=== PATIENT | female | born 1965 | race Caucasian/White ===

== ENCOUNTER 2020-08-08 16:47 | Emergency (ER) | payer BC ==
--- NOTE | 2020-08-08 17:57 | EDM.PDOC ---
ED HPI GENERAL MEDICAL PROBLEM - General Chief Complaint: ENT Problem Stated Complaint: EAR PAIN Time Seen by Provider: 08/08/20 17:05 Source of Information: Reports: Patient History Limitations: Reports: No Limitations - History of Present Illness INITIAL COMMENTS - FREE TEXT/NARRATIVE: Patient is a 55-year-old female presenting to the emergency department with complaints of left ear pain. Symptoms began last evening. She describes the symptoms as mild, however she has had some fairly severe ear infections in the past, so she is quite cautious when it comes to this. She denies any fever or chills. She has had some nasal congestion, however states that she works around dust fluids quite normal for her to have this. Left Ear Pain Score (Numeric/FACES): 5 - Related Data Allergies Allergy/AdvReac Type Severity Reaction Status Date / Time Sulfa (Sulfonamide Allergy Severe Rash Verified 08/08/20 17:17 Antibiotics) Home Meds: Home Meds Amoxicillin/Clavulanate K [Augmentin 875-125 MG] 1 tab PO BID 7 Days #14 tablet 08/08/20 [Rx] Past Medical History Genitourinary History: Reports: UTI, Recurrent - Past Surgical History GI Surgical History: Reports: Cholecystectomy Social & Family History - Tobacco Use Smoking Status *Q: Never Smoker ED ROS ENT - Review of Systems Review Of Systems: See Below Constitutional: Reports: No Symptoms. Denies: Fever, Chills, Weakness HEENT: Reports: Ear Pain, Sinus Problem Respiratory: Reports: No Symptoms Cardiovascular: Reports: No Symptoms Endocrine: Reports: No Symptoms GI/Abdominal: Reports: No Symptoms : Reports: No Symptoms Musculoskeletal: Reports: No Symptoms Skin: Reports: No Symptoms Neurological: Reports: No Symptoms Psychiatric: Reports: No Symptoms Hematologic/Lymphatic: Reports: No Symptoms Immunologic: Reports: No Symptoms ED EXAM, ENT - Physical Exam Exam: See Below Exam Limited By: No Limitations General Appearance: Alert, WD/WN, No Apparent Distress Ears: Normal External Exam, Normal Canal, TM Bulging (Left), TM Dullness (Left), TM Fluid (Left) Respiratory/Chest: No Respiratory Distress, Lungs Clear, Normal Breath Sounds, No Accessory Muscle Use, Chest Non-Tender Cardiovascular: Normal Peripheral Pulses, Regular Rate, Rhythm, No Edema, No Gallop, No JVD, No Murmur, No Rub Neurological: Alert, Oriented, CN II-XII Intact, Normal Cognition, Normal Gait, Normal Reflexes, No Motor/Sensory Deficits Psychiatric: Normal Affect, Normal Mood Skin: Warm, Dry, Intact, Normal Color, No Rash Course - Vital Signs Last Recorded V/S: Last Vital Signs Temp 97.7 F 08/08/20 17:12 Pulse 67 08/08/20 17:12 Resp 18 08/08/20 17:12 BP 112/73 08/08/20 17:12 Pulse Ox 97 08/08/20 17:12 - Re-Assessments/Exams Free Text/Narrative Re-Assessment/Exam: Patient is a 55-year-old female presenting to the emergency department with complaints of left ear pain. On exam, the TM is dull and slightly bulging with fluid behind the TM. Recommend that she start using Flonase nasal spray daily. We will also send a prescription for Augmentin for treatment of acute otitis media. Discharge instructions as documented. Departure - Departure Time of Disposition: 17:55 Disposition: Home, Self-Care 01 Condition: Good Clinical Impression: Otitis media Qualifiers: Otitis media type: unspecified Chronicity: acute Qualified Code(s): H66.90 - Otitis media, unspecified, unspecified ear - Discharge Information *PRESCRIPTION DRUG MONITORING PROGRAM REVIEWED*: No *COPY OF PRESCRIPTION DRUG MONITORING REPORT IN PATIENT ANJANA: No Prescriptions: Amoxicillin/Clavulanate K [Augmentin 875-125 MG] 1 tab PO BID 7 Days #14 tablet Instructions: Otitis Media, Adult Referrals: Andreas Espinosa MD [Primary Care Provider] - Additional Instructions: You were seen in the emergency department for left ear pain. On exam, you do have a mild left ear infection. Recommend that you purchase [id number] Flonase nasal spray and use it 2 puffs in each nostril daily to help facilitate drainage of the fluid from your eustachian tubes. You have also been started on Augmentin. Take this medication as prescribed. May use [id number] Tylenol or ibuprofen as needed for discomfort. If symptoms fail to improve, recommend follow-up in the clinic. Return to the ER as needed. Sepsis Event Note (ED) - Evaluation Sepsis Screening Result: No Definite Risk - Focused Exam Vital Signs: Vital Signs Temp Pulse Resp BP Pulse Ox 08/08/20 17:12 97.7 F 67 18 112/73 97
== END 2020-08-08 18:07 | disposition home or self-care (01) ==
LOC: JD.ED 16:47
DX: H66.92 Otitis media, unspecified, left ear (principal); Z88.2 Allergy status to sulfonamides
CPT/HCPCS: 99282; 99283

== ENCOUNTER 2021-01-10 22:42 | Emergency (ER) | payer BC ==
--- NOTE | 2021-01-10 23:26 | EDM.PDOC ---
ED HPI GENERAL MEDICAL PROBLEM - General Chief Complaint: Genitourinary Problem Stated Complaint: possible bladder infection or uti Time Seen by Provider: 01/10/21 22:51 Source of Information: Reports: Patient History Limitations: Reports: No Limitations - History of Present Illness INITIAL COMMENTS - FREE TEXT/NARRATIVE: Mrs. Grimaldo is a very pleasant 55-year-old woman who now presents the ED stating that she had a painless clear vaginal discharge that lasted about 1 day, about a week ago. She contacted her Clinical Asst's nurse, who advised observation, with no specific treatment. The patient states that she then developed a burning sensation to her vagina yesterday, 01/09/2021. She denies having dysuria or urinary frequency. No abdominal or back pain. No recent fever, nausea, or vomiting. The patient states that she has frequent urinary tract infections, but that her current symptoms are not the same as prior UTIs. The patient states that she has not taken any jmro-[id number]-[id number] oral or vaginal treatments over the past week. She denies being on any antibiotics recently. The patient states that her last menstrual period was about 1 month ago. Here in the ED, the patient's initial BP is found to be mildly low at 111/49, otherwise, she is hemodynamically stable, afebrile, saturating 97% on room air. Prior to 1 week ago, the patient denies having a recent fever, chills, sore throat, ear pain, nasal or sinus congestion, cough, dyspnea, chest pain, palpitations, nausea, vomiting, constipation, diarrhea, abdominal pain, urinary symptoms, recent weight gain or weight loss, recent bloody bowel movements or black bowel movements, recent joint aches, headaches, or rashes. The patient's PCP is Dr. Andreas Espinosa. Her Clinical Asst is Dr. Marcus Watkins. She states that she already received an influenza vaccine this season. vaginal Pain Score (Numeric/FACES): 7 - Related Data Allergies Allergy/AdvReac Type Severity Reaction Status Date / Time Sulfa (Sulfonamide Allergy Severe Rash Verified 01/10/21 22:52 Antibiotics) Home Meds: Home Meds nitrofurantoin macrocrystaL [Nitrofurantoin] 1 cap PO Q12H #9 capsule 01/11/21 [Rx] Past Medical History - Past Surgical History HEENT Surgical History: Reports: Adenoidectomy, Oral Surgery (dental extractions), Tonsillectomy GI Surgical History: Reports: Cholecystectomy (2017) Female Surgical History: Reports: Tubal Ligation Social & Family History - Tobacco Use Tobacco Use Status *Q: Never Tobacco User - Alcohol Use Alcohol Use History: No - Recreational Drug Use Recreational Drug Use: No - Living Situation & Occupation Living situation: Reports: , with Spouse Occupation: Employed ([employer]) ED ROS GENERAL - Review of Systems Review Of Systems: Comprehensive ROS is negative, except as noted in HPI. ED EXAM, RENAL/ - Physical Exam Exam: See Below Exam Limited By: No Limitations General Appearance: Alert, WD/WN, No Apparent Distress Eye Exam: Bilateral Eye: EOMI, Normal Inspection Ears: Normal External Exam, Hearing Grossly Normal Nose: Normal Inspection Throat/Mouth: Normal Inspection, Normal Lips, Normal Voice, No Airway Compromise Head: Atraumatic, Normocephalic Neck: Normal Inspection, Full Range of Motion Respiratory/Chest: No Respiratory Distress, Lungs Clear, Normal Breath Sounds, No Accessory Muscle Use Cardiovascular: Normal Peripheral Pulses, Regular Rate, Rhythm, No Edema, No Gallop, No JVD, No Murmur, No Rub GI/Abdominal: Normal Bowel Sounds, Soft, Non-Tender (including suprapubically), No Organomegaly, No Distention, No Abnormal Bruit, No Mass (Female) Exam: Other (A small piece of what appears to be green vegetable material was found in the vagina, and was removed. No other foreign bodies were seen. There was a scant amount of off-white non-malodorous vaginal discharge. No vaginal lesions. Cervical os is closed. Both a wet prep and vaginal culture were obtained.) Back Exam: Normal Inspection, Full Range of Motion. No: CVA Tenderness (L), CVA Tenderness (R) Extremities: Normal Inspection, Normal Range of Motion, No Pedal Edema, Normal Capillary Refill Neurological: Alert, Oriented, Normal Cognition, No Motor/Sensory Deficits Psychiatric: Normal Affect Skin Exam: Warm, Dry, Intact, Normal Color, No Rash Course - Vital Signs Last Recorded V/S: Last Vital Signs Temp 36.3 C 01/10/21 22:49 Pulse 64 01/11/21 00:33 Resp 17 01/11/21 00:33 BP 123/57 L 01/11/21 00:33 Pulse Ox 97 01/11/21 00:33 - Orders/Labs/Meds Orders: Active Orders 24 hr Category Date Time Status CULTURE URINE [RM] Stat Lab 01/10/21 23:07 Received GENITAL CULTURE [MREF] Stat Lab 01/10/21 23:38 Received Labs: Laboratory Tests 01/10/21 01/10/21 Range/Units 23:07 23:25 Urine Color Yellow (Yellow) Urine Appearance Clear (Clear) Urine pH 5.5 (5.0-8.0) Ur Specific [place] > or = 1.030 (1.005-1.030) Urine Protein Negative (Negative) Urine Glucose (UA) Negative (Negative) Urine Ketones Negative (Negative) Urine Occult Blood 2+ H (Negative) Urine Nitrite Negative (Negative) Urine Bilirubin Negative (Negative) Urine Urobilinogen 0.2 (0.2-1.0) Ur Leukocyte Esterase 2+ H (Negative) Urine RBC 0-5 (0-5) /hpf Urine WBC 40-50 H (0-5) /hpf Ur Squamous Epith Cells 0-5 (0-5) /hpf Urine Bacteria Few (FEW) /hpf Urine Mucus Few (FEW) /hpf Urine HCG, Qual Negative (NEGATIVE) Meds: Medications Discontinued Medications Generic Name Dose Route Start Last Admin Trade Name Freq PRN Reason Stop Dose Admin Nitrofurantoin Macrocrystals 100 mg 01/11/21 00:13 01/11/21 00:31 Macrobid PO 01/11/21 00:14 100 mg ONETIME STA Administration Phenazopyridine HCl 95 mg 01/11/21 00:18 01/11/21 00:31 Urinary Pain Relief PO 01/11/21 00:19 95 mg ONETIME STA Administration - Re-Assessments/Exams Free Text/Narrative Re-Assessment/Exam: 01/10/21 23:19 As above, the patient reports having a clear vaginal discharge without discomfort for 1 day a week ago, then a burning sensation to her vagina since yesterday, with no urinary symptoms, abdominal or back pain, fever, nausea, or vomiting. On vaginal exam, I found a small piece of what appears to be a greenish colored vegetable material, and there was a scant amount of off-white non-malodorous discharge. A wet prep and genital culture were obtained, and the patient has already provided a urine sample for urinalysis. I am told that we will need additional urine for a urine test. 01/10/21 23:29 Notified by Kristian KATZ that the swab that was used to collect a culture sample is not usable, because the genital cultures are now sent out, and the swab needs to be placed into a preservative. In order to obtain a vaginal culture, we will need to collect a new sample with a different swab. I asked Kristian KATZ to asked the patient if she would mind repeating the vaginal exam. 01/10/21 23:31 Notified by Kristian KATZ that the patient is agreeable. 01/10/21 23:39 I repeated the vaginal exam, obtaining a culture with the correct swab. 01/10/21 23:52 The patient's urinalysis is remarkable for 2+ occult blood with 0-5 RBCs, 2+ leukocyte esterase with 40-50 WBCs, nitrate negative with few bacteria, and 0-5 squamous epithelial cells. Her urine test is negative. Based on the above, I have ordered a urine culture. 01/11/21 00:14 The patient's wet prep is remarkable for no yeast, Trichomonas, or clue cells seen, with many WBCs and few epithelial cells. 01/11/21 00:18 Test results discussed with the patient. Based on the above, I suspect that the patient is suffering from a UTI. There is no evidence of vaginitis. I have ordered nitrofurantoin, and will submit a prescription to complete a 5-day course. She will also be given Pyridium, which she can continue [id number]. She needs to stay adequately hydrated. I would like her to follow-up with her PCP in 3 days, to have them check on the urine culture results, to make sure that she is on the correct antibiotic. Departure - Departure Time of Disposition: 00:19 Disposition: Home, Self-Care 01 Condition: Good Clinical Impression: Cystitis - Discharge Information *PRESCRIPTION DRUG MONITORING PROGRAM REVIEWED*: Not Applicable *COPY OF PRESCRIPTION DRUG MONITORING REPORT IN PATIENT ANJANA: Not Applicable Prescriptions: nitrofurantoin macrocrystaL [Nitrofurantoin] 1 cap PO Q12H #9 capsule Instructions: Urinary Tract Infection, Adult, [id number] Referrals: Andreas Espinosa MD [Primary Care Provider] - Marcus Watkins MD [Physician] - Forms: ED Department Discharge Additional Instructions: You were seen in the emergency room for vaginal burning since 01/09/2021. Work-up in the ER included a urinalysis, urine test, a vaginal wet prep, along with a vaginal culture and urine culture. Your urinalysis is consistent with a urinary tract infection, while the remainder of your work-up was unremarkable. You have been started on the antibiotic nitrofurantoin, and a prescription for nitrofurantoin has been sent to the [facility], located at [address] [place] [address]. Take 1 tablet of nitrofurantoin every 12 hours, starting this evening, 01/11/2021. Finish the entire prescription unless told otherwise by your doctor. In addition to nitrofurantoin, you have been started on the pain reliever Pyridium. Pyridium is available covg-iqk-isxdrsv as Azo. You may take 1 tablet of Azo 3 times a day, for 2 days, for a total of 6 tablets. Be aware that 1 of those 6 tablets was given to you in the ER. Azo will turn your urine orange - that is normal. Stay adequately hydrated. It does not really matter what type of fluid you drink. We recommend that you contact the office of your PCP, Dr. Andreas Espinosa, this coming 01/13/2021, to have them check on the urine culture result, to make sure that you are on the correct antibiotic. If any other problems, please do not hesitate to return to the ER. Sepsis Event Note (ED) - Evaluation Sepsis Screening Result: No Definite Risk - Focused Exam Vital Signs: Vital Signs Temp Pulse Resp BP Pulse Ox 01/11/21 00:33 64 17 123/57 L 97 01/10/21 22:49 36.3 C 68 18 111/49 L 97 - My Orders Last 24 Hours: My Active Orders 01/10/21 23:07 CULTURE URINE [RM] Stat 01/10/21 23:38 GENITAL CULTURE [MREF] Stat - Assessment/Plan Last 24 Hours: My Active Orders 01/10/21 23:07 CULTURE URINE [RM] Stat 01/10/21 23:38 GENITAL CULTURE [MREF] Stat
[2021-01-11] MEDS ORDERED: Nitrofurantoin Monohydrate/Macrocrystalline 100 MG Cap PO STA (00:13)
[2021-01-11] MEDS ORDERED: Phenazopyridine 95 MG Tab PO STA (00:18)
== END 2021-01-11 00:33 | disposition home or self-care (01) ==
LOC: JD.ED 22:42
DX: N30.90 Cystitis, unspecified without hematuria (principal); Z88.2 Allergy status to sulfonamides
CPT/HCPCS: 81001; 81025; 87070; 87086; 87205; 87210; 87808; 99283; A9270

== ENCOUNTER 2023-04-14 06:36 | Emergency (ER) | payer BC ==
[2023-04-14 07:50] LABS: APPEARANCE,URINE SLT CLOUDY (Clear); BILIRUBIN,URINE NEGATIVE (Negative); COLOR,URINE YELLOW (Yellow); GLUCOSE,URINE NEGATIVE (Negative); KETONES,URINE NEGATIVE (Negative); LEUKOCYTE ESTERASE,URINE 2+ (Negative); NITRITE,URINE NEGATIVE (Negative); OCCULT BLOOD,URINE 2+ (Negative); PROTEIN,URINE 1+ (Negative); UROBILINOGEN,URINE 0.2 (0.2-1.0)
[2023-04-14 08:06] LABS: BACTERIA,URINE FEW /hpf (FEW); EPITHELIAL CELLS,URINE 0-5 /hpf (0-5); MUCUS,URINE FEW /hpf (FEW)
== END 2023-04-14 08:07 | disposition home or self-care (01) ==
LOC: JD.ED 06:36
DX: N39.0 Urinary tract infection, site not specified (principal); Z88.2 Allergy status to sulfonamides
CPT/HCPCS: 81001; 99283